=== PATIENT | female | born 1955 | race Caucasian/White ===

== ENCOUNTER → 2022-02-14 12:44 | Outpatient (BNVA) | payer MEDICARE, OTHER, SELFPAY | PROVIDERS: Visit Provider Family Medicine | DX: Z00.00 Encounter for general adult medical examination without abnormal findings (principal); E03.9 Hypothyroidism, unspecified; E78.5 Hyperlipidemia, unspecified; Z51.81 Encounter for therapeutic drug level monitoring | CPT/HCPCS: 80053; 80061; 84439; 84443; 85025 ==

== ENCOUNTER → 2022-04-18 12:04 | Outpatient (BNVA) | payer MEDICARE, OTHER, SELFPAY | PROVIDERS: Visit Provider Family Medicine | DX: E03.9 Hypothyroidism, unspecified (principal) | CPT/HCPCS: 84439; 84443 ==

== ENCOUNTER → 2024-05-31 12:16 | Outpatient (BNVA) | payer MEDICARE, SELFPAY | PROVIDERS: PCP Family Medicine; Visit Provider Family Medicine | DX: Z51.81 Encounter for therapeutic drug level monitoring (principal); Z13.220 Encounter for screening for lipoid disorders; Z00.00 Encounter for general adult medical examination without abnormal findings; E55.9 Vitamin D deficiency, unspecified; E03.9 Hypothyroidism, unspecified; I10 Essential (primary) hypertension | CPT/HCPCS: 80053; 80061; 82306; 84439; 84443; 85025 ==

== ENCOUNTER → 2025-05-29 10:59 | Outpatient (BNVA) | payer MEDICARE, SELFPAY | PROVIDERS: PCP Family Medicine; Visit Provider Family Medicine | DX: E55.9 Vitamin D deficiency, unspecified (principal); Z51.81 Encounter for therapeutic drug level monitoring; E03.9 Hypothyroidism, unspecified; Z13.6 Encounter for screening for cardiovascular disorders | CPT/HCPCS: 80053; 80061; 82306; 84439; 84443; 85025 ==

== ENCOUNTER 2025-07-11 10:02 | Outpatient (CLI) | payer MEDICARE, SELFPAY ==
--- NOTE | 2025-07-11 10:15 | XR_ITS ---
WS: [id number] Exam: XR ribs RT mn 3V w CXR1V [id number] Date/Time of Exam: 07/11/2025 10:15 AM Reason For Exam: Right upper ant rib pain No acute RIGHT rib fracture identified. The RIGHT lung is clear and fully inflated. No pulmonary or pleural reactive changes. Intact RIGHT reverse shoulder prosthesis noted. XR/XR ribs RT mn 3V w CXR1V [id number] IMPRESSION: 1. No acute RIGHT rib fracture or pneumothorax.
== END 2025-07-11 10:03 | disposition home or self-care (01) ==
PROVIDERS: PCP Family Medicine; Visit Provider Family Medicine
DX: R07.89 Other chest pain (principal); Z96.611 Presence of right artificial shoulder joint
CPT/HCPCS: 71101